=== PATIENT | female | born 1980 ===

== ENCOUNTER 2017-08-27 17:19 | Emergency (ER) | payer MEDICAID ==
[2017-08-27 17:29] VITALS: RESP 18; TEMP 98.3; O2SAT 100; BMI 29.7
--- NOTE | 2017-08-27 17:29 | ED PDOC ---
Arrival/HPI - General Time Seen by Provider: 08/27/17 17:29 Historian: Patient - History of Present Illness Narrative History of Present Illness (Text): 08/27/17 17:29 This 37 yo female with pmh PE on Eliquis 5mg BID, presents to this ED c/o right sided pleuritic CP x 2 week. Patient stated she feels mild SOB. Patient denies abdominal pain. nausea, vomiting, leg swelling, recent travel, recent procedure, trauma, tobacco use, BCP, dizziness or abnormal gait. Time/Duration: Other (2 weeks) Context: Home Past Medical History - Provider Review Nursing Documentation Reviewed: Yes - Infectious Disease Hx of Infectious Diseases: None - Cardiac Hx Cardiac Disorders: No Hx Pacemaker: No - Pulmonary Hx Respiratory Disorders: No Hx Asthma: No - Neurological Hx Neurological Disorder: No - HEENT Hx HEENT Disorder: No - Renal Hx Renal Disorder: No - Endocrine/Metabolic Hx Endocrine Disorders: No - Hematological/Oncological Hx Blood Disorders: No Hx Blood Transfusions: No Hx Blood Transfusion Reaction: No - Integumentary Hx Dermatological Disorder: No - Musculoskeletal/Rheumatological Hx Musculoskeletal Disorders: No - Gastrointestinal Hx Gastrointestinal Disorders: No - Genitourinary/Gynecological Hx Genitourinary Disorders: No - Psychiatric Hx Psychophysiologic Disorder: No Hx Emotional Abuse: No Hx Physical Abuse: No Hx Substance Use: No - Surgical History Hx Cholecystectomy: Yes Other/Comment: gastric sleeve - Anesthesia Hx Anesthesia Reactions: No Hx Malignant Hyperthermia: No - Suicidal Assessment Feels Threatened In Home Enviroment: No Family/Social History - Physician Review Nursing Documentation Reviewed: Yes Family/Social History: Other (noncontributory) Smoking Status: Never Smoked Hx Alcohol Use: No Hx Substance Use: No Allergies/Home Meds Allergies/Adverse Reactions: Allergies No Known Allergies Allergy (Verified 08/27/17 17:32) Home Medications: Home Meds Medication Instructions Recorded Confirmed Apixaban [Eliquis] 5 mg PO BID 08/27/17 08/27/17 Review of Systems - Review of Systems Constitutional: Normal. absent: Fatigue, Weight Change, Fevers, Night Sweats Eyes: Normal ENT: Normal Respiratory: Normal. absent: SOB, Cough Cardiovascular: Other (see hpi) Gastrointestinal: Normal Genitourinary Female: Normal Musculoskeletal: Normal Skin: Normal Neurological: Normal Endocrine: Normal Hemo/Lymphatic: Normal Psychiatric: Normal Physical Exam Vital Signs Temp Pulse Resp BP Pulse Ox 08/27/17 21:30 90 18 138/94 H 100 08/27/17 17:29 98.3 F 94 H 18 139/95 H 100 Medical Decision Making ED Course and Treatment: 08/27/17 21:21 Leaving Against Medical Advice (AMA): This patient is choosing to leave against medical advice. The EP has personally explained to the pt that choosing to do so may result in permanent bodily harm or . The EP discussed at great length that without further evaluation and monitoring there may be unforeseen circumstances and/or deterioration causing permanent bodily harm or as a result of their choice. The pt verbalized these risks back to the physician in laymans terms. The pt is alert, oriented, and shows the mental capacity to make clear decisions regarding the pts health care at this time. The pt continues to wish to leave against medical advice. In light of the pts decision to leave AMA, follow-up has been recommended and the pt is aware of the importance of following up as instructed. The pt has been advised that they should return to the ED immediately if they change their mind at any time, or if thier condition begins to change or worsen in any way. Re-evaluation Time: 21:21 Reassessment Condition: Re-examined, Unchanged - Lab Interpretations Lab Results: 08/27/17 18:25 08/27/17 18:25 Lab Results 08/27/17 18:50: PT 14.0 H, INR 1.28 H, APTT 29.3 08/27/17 18:25: Sodium 143, Chloride 109 H, Potassium 4.2, Carbon Dioxide 25, Anion Gap 13, BUN 16, Creatinine 0.8, Est GFR ( Amer) > 60, Est GFR (Non- Af Amer) > 60, Random Glucose 103, Calcium 9.5, Total Bilirubin 0.3, AST 25, ALT 31, Alkaline Phosphatase 50, Lactate Dehydrogenase 379, Total Creatine Kinase 58, Troponin I < 0.01, Total Protein 7.3, Albumin 4.4, Globulin 2.9, Albumin/Globulin Ratio 1.5 08/27/17 18:25: pO2 38, VBG pH 7.27 L, VBG pCO2 60.0, VBG HCO3 27.6, VBG Total CO2 29.4 H, VBG O2 Sat (Calc) 70.7 H, VBG Base Excess -0.6 L, VBG Potassium 4.0 , Sodium 142.0, Chloride 110.0 H, Glucose 102, Lactate 2.7 H, FiO2 21.0, Venous Blood Potassium 4.0 08/27/17 18:25: WBC 7.9 D, RBC 4.23, Hgb 9.0 L, Hct 30.0 L, MCV 70.9 L, MCH 21.3 L, MCHC 30.0 L, RDW 16.9 H, Plt Count 251, MPV 9.3, Gran % 68.5 H, Lymph % (Auto) 22.6, Mclennan % (Auto) 5.9, Eos % (Auto) 2.5, Baso % (Auto) 0.5, Gran # 5.38 , Lymph # 1.8, Mclennan # 0.5, Eos # 0.2, Baso # 0.04 08/27/17 17:45: Urine Opiates Screen Negative, Urine Methadone Screen Negative, Ur Barbiturates Screen Negative, Ur Phencyclidine Scrn Negative, Ur Amphetamines Screen Negative, U Benzodiazepines Scrn Negative, U Oth Cocaine Metabols Negative, U Cannabinoids Screen Positive H 08/27/17 17:45: Urine Color Yellow, Urine Appearance Clear, Urine pH 6.0, Ur Specific [place] 1.025, Urine Protein Trace H, Urine Glucose (UA) Negative, Urine Ketones Negative, Urine Blood Negative, Urine Nitrate Negative, Urine Bilirubin Negative, Urine Urobilinogen 0.2, Ur Leukocyte Esterase Negative, Urine RBC Negative, Urine WBC Negative, Ur Epithelial Cells 4 - 5, Urine HCG, Qual Negative I have reviewed the lab results: Yes Interpretation: Abnormal lab values (elevated lactate, anemia) - RAD Interpretation Narrative RAD Interpretations (Text): 08/27/17 21:21 [facility] Division of Radiology [address] [address] Tel. no. Patient Name: FRANCO ARELLANO Pt. Address: [address] [place] [address]. Rec #: [id number] [place] [address]: Otoniel WHITNEY,Cayetano Gonzalez Pt Order Location: ED : 1980 Female Age: 37 Order #: [id number] Reason for exam: RUQ pain CT Scan ABD PELVIS IV CONTRAST ONLY Exam Date: 08/27/17 This imaging exam was performed at [facility] ADDENDUM Addendum created by South Chamberlain MD on 08/27/2017 9:11:39 PM EDT THIS REPORT CONTAINS FINDINGS THAT MAY BE CRITICAL TO PATIENT CARE. The findings were verbally communicated via telephone conference with Cayetano Frederick PA-C at 9:10 PM EDT on 08/27/2017. The findings were acknowledged and understood. Initial report created on 08/27/2017 8:59:22 PM EDT EXAM: CT Abdomen and Pelvis With Intravenous Contrast EXAM DATE/TIME: 08/27/2017 5:49 PM CLINICAL HISTORY: The patient age is 37 years old and is female; Pain; Abdominal pain; Localized; Right; Additional info: [facility] pain Facility exam id and description: Ct abdpelciv abd pelvis iv contrast only TECHNIQUE: Axial computed tomography images of the abdomen and pelvis with intravenous contrast. All CT scans at this facility use one or more dose reduction techniques, viz.: automated exposure control; ma/kV adjustment per patient size (including targeted exams where dose is matched to indication; i.e. head); or iterative reconstruction technique. Coronal and sagittal reformatted images were created and reviewed. CONTRAST: 100 mL of omni administered intravenously. COMPARISON: No relevant prior studies available. FINDINGS: Lower thorax: See CTA chest report from the same day. ABDOMEN: Liver: The liver measures 18.5 cm in a craniocaudad dimension, consistent with hepatomegaly. No visualized hepatic mass. Gallbladder and bile ducts: Surgical clips are identified within the gallbladder fossa, compatible with cholecystectomy. Pancreas: Normal contour, without acute peripancreatic stranding. Spleen: No splenomegaly. Adrenals: No mass. Kidneys and ureters: There is a small hypodense probable cyst at the lower pole of the left kidney measuring 1.3 x 0.8 cm. There is no hydronephrosis bilaterally. Stomach and bowel: Postoperative changes are identified involving the stomach. Moderate fecal material is identified within the colon. Appendix: The appendix is distended measuring 9 mm in diameter. There is no acute periappendiceal stranding. PELVIS: Bladder: No mass. Reproductive: Within the right ovary, there is a peripherally enhancing probable cyst measuring 2.5 x 2.4 cm. ABDOMEN and PELVIS: Intraperitoneal space: No free air. Bones/joints: Hypertrophic degenerative changes are noted within the spine. Vasculature: No abdominal aortic aneurysm. Lymph nodes: Small retroperitoneal lymph nodes are visualized, without significant retroperitoneal lymphadenopathy. There is no significant intrapelvic lymphadenopathy. IMPRESSION: 1. Hepatomegaly. 2. The appendix is distended measuring 9 mm in diameter. There is no acute periappendiceal stranding. Early appendicitis cannot be excluded. Clinical correlation is recommended. 3. Within the right ovary, there is a peripherally enhancing probable cyst measuring 2.5 x 2.4 cm. This can be further evaluated with ultrasound. 4. Incidental/non-acute findings are described above. Addendum Dictated By: South Robins MD Addendum Dictated Date Time:08/27/17 Addendum Signed by:South Robins MD Addendum signed Date Time: 08/27/172110 Addendum Transcribed By: MICHAEL Addendum Transcribed Date Time: 08/27/17 CT Scan ANGIO CHEST PE PROTOCOL Exam Date: 08/27/17 This imaging exam was performed at [facility] EXAM: CT Angiography Chest With Intravenous Contrast EXAM DATE/TIME: 08/27/2017 5:43 PM CLINICAL HISTORY: The patient age is 37 years old and is female; Signs and symptoms; Shortness of breath; Additional info: SOB HX. Pe [facility] exam [facility] and description[facility] TECHNIQUE: Axial computed tomographic angiography images of the chest with intravenous contrast using pulmonary embolism protocol. All CT scans at this facility use one or more dose reduction techniques, viz.: automated exposure control; ma/kV adjustment per patient size (including targeted exams where dose is matched to indication; i.e. head); or iterative reconstruction technique. MIP reconstructed images were created and reviewed. Coronal and sagittal reformatted images were created and reviewed. CONTRAST: 100 mL of omni administered intravenously. COMPARISON: No relevant prior studies available. FINDINGS: Pulmonary arteries: There is no acute central pulmonary embolism. Evaluation of the peripheral pulmonary arteries for pulmonary embolism is suboptimal due to artifact. Aorta: No acute findings. No thoracic aortic aneurysm. Lungs: Patchy nonspecific groundglass density is identified within both lower lobes. There is a 2 mm nodule right upper lobe on series 2 image 48. No lung mass. Pleural space: No significant effusion. No pneumothorax. Heart: There is a small amount of fluid within the superior pericardial recess. Mediastinum: There is soft tissue within the anterior mediastinum, compatible with thymic tissue. Bones/joints: Hypertrophic degenerative changes are noted within the spine. Soft tissues: There is a metallic clip are piercing within the ventral chest. Nipple piercings are also visualized bilaterally. Lymph nodes: No significant mediastinal or hilar lymphadenopathy. Upper abdomen: For discussion of findings within the upper abdomen, refer to the CT abdomen/pelvis from the same day. IMPRESSION: 1. There is no acute central pulmonary embolism. Evaluation of the peripheral pulmonary arteries for pulmonary embolism is suboptimal due to artifact. If further evaluation is clinically indicated, a VQ scan is recommended. 2. Patchy nonspecific groundglass density is identified within both lower lobes. 3. There is a 2 mm nodule right upper lobe on series 2 image 48. Correlation with the prior study is recommended. 4. Incidental/non-acute findings are described above. Dictated By: South Chamberlain MD, MD Dictated Date/Time: 08/27/172057 Signed By: South Robins MD Date Signed: 2057 Transcribed By: MICHAEL Transcribe Date/Time : 08/27/172057 CAYLA/KAYY Radiology Orders: 08/27/17 17:43 ANGIO CHEST PE PROTOCOL [CT] Stat 08/27/17 17:44 CHEST PORTABLE [RAD] Stat 08/27/17 17:49 ABDOMEN & PELVIS [ABD & PELVIS IV CONTRAST ONLY] [CT] Stat - Medication Orders Current Medication Orders: Discontinued Medications Famotidine (Pepcid 20mg/50ml Premix) 20 mg in 50 mls @ 100 mls/hr IVPB STAT STA Stop: 08/27/17 18:22 Last Admin: 08/27/17 18:21 Dose: 100 mls/hr eMAR Start Stop Document 08/27/17 18:21 EQ (Rec: 08/27/17 18:21 EQ [id number]) Intravenous Solution Start Date 08/27/17 Start Time 18:21 Sodium Chloride (Sodium Chloride 0.9%) 1,000 mls @ 999 mls/hr IV .Q1H1M STA Stop: 10/27/17 20:11 Last Admin: 08/27/17 19:25 Dose: 999 mls/hr eMAR Start Stop Document 08/27/17 19:25 EQ (Rec: 08/27/17 19:25 EQ [facility] [id number]) Intravenous Solution Start Date 08/27/17 Start Time 19:25 Disposition/Present on Arrival - Present on Arrival Any Indicators Present on Arrival: No History of DVT/PE: No History of Uncontrolled Diabetes: No Urinary Catheter: No History Surgical Site Infection Following: None - Disposition Have Diagnosis and Disposition been Completed?: Yes Diagnosis: Other appendicitis Disposition: AGAINST MEDICAL ADVICE Disposition Time: 21:24 Patient Problems: Current Active Problems Problem Status Onset Appendicitis Acute Condition: UNKNOWN Additional Instructions: Please return to emergency at any time for medical care Referrals: Cynthia Lange DO [Primary Care Provider] - Follow up with primary Forms: [employer] (Thai)
[2017-08-27] MEDS ORDERED: Famotidine 20mg/50ml 20 MG/50 ML BAG IVPB STA (17:53)
[2017-08-27 18:00] LABS: URINE BILIRUBIN NEGATIVE (NEGATIVE); URINE BLOOD NEGATIVE (NEGATIVE); URINE GLUCOSE (UA) NEGATIVE (NEGATIVE); URINE KETONE NEGATIVE (NEGATIVE); URINE LEUKOCYTE ESTERASE NEGATIVE Leu/uL (NEGATIVE); URINE PROTEIN TRACE mg/dL (<30 mg/dL); URINE UROBILINOGEN 0.2 E.U./dL (<1 E.U./dL)
[2017-08-27 18:03] LABS: URINE APPEARANCE CLEAR (CLEAR); URINE COLOR YELLOW (YELLOW)
[2017-08-27 18:21] LABS: URINE RBC NEGATIVE /hpf (0-2); URINE WBC NEGATIVE /hpf (0-6)
[2017-08-27 18:31] LABS: BASO # 0.04 K/mm3 (0.0-2.0); BASO % 0.5 % (0.0-3.0); EOS # 0.2 (0.0-0.7); EOS % 2.5 % (1.5-5.0); GRAN # 5.38 (1.4-6.5); GRAN % 68.5 % (50.0-68.0); LYMPH # 1.8 (1.2-3.4); LYMPH % 22.6 % (22.0-35.0); MEAN CELL VOLUME 70.9 fl (80.0-105.0); MEAN CORPUSCULAR HEMOGLOBIN 21.3 pg (25.0-35.0); MEAN PLATELET VOLUME 9.3 fl (7.0-11.0); MONO # 0.5 (0.1-0.6); MONO % 5.9 % (1.0-6.0); RED CELL DISTRIBUTION WIDTH 16.9 % (11.5-14.5); WHITE BLOOD COUNT 7.9 10^3/ul (4.5-11.0)
[2017-08-27] MEDS ORDERED: Iohexol 350 MG/100 ML VIAL ONE (18:39)
[2017-08-27 18:45] LABS: VENOUS BLOOD GAS BASE EXCESS -0.6 mmol/L (0.0-2.0); VENOUS BLOOD PH 7.27 (7.32-7.43)
[2017-08-27 18:56] LABS: INR 1.28 (0.93-1.08); PARTIAL THROMBOPLASTIN TIME 29.3 Seconds (25.1-36.5)
[2017-08-27 18:57] LABS: ALB/GLOB RATIO 1.5 (1.1-1.8); ALKALINE PHOSPHATASE 50 U/L (38-126); ALT/SGPT 31 U/L (7-56); AST/SGOT 25 U/L (14-36); BILIRUBIN,TOTAL 0.3 mg/dL (0.2-1.3); BLOOD UREA NITROGEN 16 mg/dL (7-21); CALCIUM 9.5 mg/dL (8.4-10.5); CARBON DIOXIDE 25 mmol/L (21-33); CHLORIDE 109 mmol/L (98-107); GFR AFRICAN-AMERICAN > 60; GLUCOSE,RANDOM 103 mg/dL (70-110); POTASSIUM 4.2 mmol/L (3.6-5.0); SODIUM 143 mmol/L (132-148); TOTAL PROTEIN 7.3 g/dL (5.8-8.3)
[2017-08-27 19:09] LABS: TROPONIN I < 0.01 ng/mL
[2017-08-27] MEDS ORDERED: Sodium Chloride 0.9% 1,000 ML IV STA (19:11)
--- NOTE | 2017-08-27 20:58 | CT ---
EXAM: CT Angiography Chest With Intravenous Contrast EXAM DATE/TIME: 08/27/2017 5:43 PM CLINICAL HISTORY: The patient age is 37 years old and is female; Signs and symptoms; Shortness of breath; Additional info: SOB HX. Pe Facility exam id and description: Ct [facility] angio chest pe protocol TECHNIQUE: Axial computed tomographic angiography images of the chest with intravenous contrast using pulmonary embolism protocol. All CT scans at this facility use one or more dose reduction techniques, viz.: automated exposure control; ma/kV adjustment per patient size (including targeted exams where dose is matched to indication; i.e. head); or iterative reconstruction technique. MIP reconstructed images were created and reviewed. Coronal and sagittal reformatted images were created and reviewed. CONTRAST: 100 mL of omni administered intravenously. COMPARISON: No relevant prior studies available. FINDINGS: Pulmonary arteries: There is no acute central pulmonary embolism. Evaluation of the peripheral pulmonary arteries for pulmonary embolism is suboptimal due to artifact. Aorta: No acute findings. No thoracic aortic aneurysm. Lungs: Patchy nonspecific groundglass density is identified within both lower lobes. There is a 2 mm nodule right upper lobe on series 2 image 48. No lung mass. Pleural space: No significant effusion. No pneumothorax. Heart: There is a small amount of fluid within the superior pericardial recess. Mediastinum: There is soft tissue within the anterior mediastinum, compatible with thymic tissue. Bones/joints: Hypertrophic degenerative changes are noted within the spine. Soft tissues: There is a metallic clip are piercing within the ventral chest. Nipple piercings are also visualized bilaterally. Lymph nodes: No significant mediastinal or hilar lymphadenopathy. Upper abdomen: For discussion of findings within the upper abdomen, refer to the CT abdomen/pelvis from the same day. IMPRESSION: 1. There is no acute central pulmonary embolism. Evaluation of the peripheral pulmonary arteries for pulmonary embolism is suboptimal due to artifact. If further evaluation is clinically indicated, a VQ scan is recommended. 2. Patchy nonspecific groundglass density is identified within both lower lobes. 3. There is a 2 mm nodule right upper lobe on series 2 image 48. Correlation with the prior study is recommended. 4. Incidental/non-acute findings are described above.
--- NOTE | 2017-08-27 20:59 | CT ---
EXAM: CT Abdomen and Pelvis With Intravenous Contrast EXAM DATE/TIME: 08/27/2017 5:49 PM CLINICAL HISTORY: The patient age is 37 years old and is female; Pain; Abdominal pain; Localized; Right; Additional info: [facility] pain Facility exam id and description: Ct abdpelciv abd pelvis iv contrast only TECHNIQUE: Axial computed tomography images of the abdomen and pelvis with intravenous contrast. All CT scans at this facility use one or more dose reduction techniques, viz.: automated exposure control; ma/kV adjustment per patient size (including targeted exams where dose is matched to indication; i.e. head); or iterative reconstruction technique. Coronal and sagittal reformatted images were created and reviewed. CONTRAST: 100 mL of omni administered intravenously. COMPARISON: No relevant prior studies available. FINDINGS: Lower thorax: See CTA chest report from the same day. ABDOMEN: Liver: The liver measures 18.5 cm in a craniocaudad dimension, consistent with hepatomegaly. No visualized hepatic mass. Gallbladder and bile ducts: Surgical clips are identified within the gallbladder fossa, compatible with cholecystectomy. Pancreas: Normal contour, without acute peripancreatic stranding. Spleen: No splenomegaly. Adrenals: No mass. Kidneys and ureters: There is a small hypodense probable cyst at the lower pole of the left kidney measuring 1.3 x 0.8 cm. There is no hydronephrosis bilaterally. Stomach and bowel: Postoperative changes are identified involving the stomach. Moderate fecal material is identified within the colon. Appendix: The appendix is distended measuring 9 mm in diameter. There is no acute periappendiceal stranding. PELVIS: Bladder: No mass. Reproductive: Within the right ovary, there is a peripherally enhancing probable cyst measuring 2.5 x 2.4 cm. ABDOMEN and PELVIS: Intraperitoneal space: No free air. Bones/joints: Hypertrophic degenerative changes are noted within the spine. Vasculature: No abdominal aortic aneurysm. Lymph nodes: Small retroperitoneal lymph nodes are visualized, without significant retroperitoneal lymphadenopathy. There is no significant intrapelvic lymphadenopathy. IMPRESSION: 1. Hepatomegaly. 2. The appendix is distended measuring 9 mm in diameter. There is no acute periappendiceal stranding. Early appendicitis cannot be excluded. Clinical correlation is recommended. 3. Within the right ovary, there is a peripherally enhancing probable cyst measuring 2.5 x 2.4 cm. This can be further evaluated with ultrasound. 4. Incidental/non-acute findings are described above.
[2017-08-27 22:21] VITALS: BP 138/94; PULSE 90
--- NOTE | 2017-08-28 09:19 | CARD ---
APPROVED REPORT EKG Measurement Heart [id number] <Conclusion> Normal sinus rhythm Normal ECG
--- NOTE | 2017-08-28 09:52 | RAD ---
HISTORY: pleuritic CP COMPARISON: No prior. FINDINGS: LUNGS: No active pulmonary disease. PLEURA: No significant pleural effusion identified, no pneumothorax apparent. CARDIOVASCULAR: Cardiac size appears upper limits of normal with element of technical magnification likely in effect given AP technique. No pulmonary vascular derangement identified. OSSEOUS STRUCTURES: No significant abnormalities. VISUALIZED UPPER ABDOMEN: Normal. OTHER FINDINGS: Note is made of bilateral nipple rings. A 3rd metallic density is identified in the inferior midline chest in this patient. Clinically correlate. IMPRESSION: No acute cardiopulmonary is appreciated.
== END 2017-08-27 21:35 | disposition left against medical advice (07) ==
LOC: ED 17:19
DX: K36 Other appendicitis (principal)
CPT/HCPCS: 71010; 71275; 74177; 80053; 80324; 80345; 80346; 80349; 80353; 80358; 80361; 81001; 82550; 82803; 83615; 83992; 84484; 84703; 85025; 85610; 85730; 87086; 93005; 99284; J7040; Q9967

== ENCOUNTER 2017-08-27 22:54 | Observation (INO) | payer MEDICAID ==
--- NOTE | 2017-08-27 23:43 | ED PDOC ---
Arrival/HPI - General Historian: Patient <Cayetano Frederick - Last Filed: 08/28/17 01:06> <Apolinar Griffith - Last Filed: 08/28/17 01:36> - General Time Seen by Provider: 08/27/17 23:00 - History of Present Illness Narrative History of Present Illness (Text): 08/27/17 23:43 This 37 yo female presents to this ED for evaluation of abnormal CT scan. Patient was seen in this ED early today for right sided CP that radiates to her RUQ of her abdomen. Ct scan of chest demonstrates an enlarge appendix. Patient was not able to be admitted since she had personal things to do. Patient admits a mild RLQ abdominal pain at this time. Patient denies new complains. (Cayetano Frederick) Past Medical History - Provider Review Nursing Documentation Reviewed: Yes - Infectious Disease Hx of Infectious Diseases: None - Cardiac Hx Cardiac Disorders: No Hx Pacemaker: No - Pulmonary Hx Respiratory Disorders: No Hx Asthma: No - Neurological Hx Neurological Disorder: No - HEENT Hx HEENT Disorder: No - Renal Hx Renal Disorder: No - Endocrine/Metabolic Hx Endocrine Disorders: No - Hematological/Oncological Hx Blood Disorders: No Hx Blood Transfusions: No Hx Blood Transfusion Reaction: No - Integumentary Hx Dermatological Disorder: No - Musculoskeletal/Rheumatological Hx Musculoskeletal Disorders: No - Gastrointestinal Hx Gastrointestinal Disorders: No - Genitourinary/Gynecological Hx Genitourinary Disorders: No - Psychiatric Hx Psychophysiologic Disorder: No Hx Emotional Abuse: No Hx Physical Abuse: No Hx Substance Use: No - Surgical History Hx Cholecystectomy: Yes Other/Comment: gastric sleeve - Anesthesia Hx Anesthesia Reactions: No Hx Malignant Hyperthermia: No - Suicidal Assessment Feels Threatened In Home Enviroment: No <Cayetano Frederick - Last Filed: 08/28/17 01:06> Family/Social History - Physician Review Nursing Documentation Reviewed: Yes Family/Social History: Other Smoking Status: Never Smoked Hx Alcohol Use: No Hx Substance Use: No <Cayetano Frederick - Last Filed: 08/28/17 01:06> Allergies/Home Meds <Cayetano Frederick - Last Filed: 08/28/17 01:06> <Apolinar Griffith - Last Filed: 08/28/17 01:36> Allergies/Adverse Reactions: Allergies No Known Allergies Allergy (Verified 08/27/17 17:32) Home Medications: Home Meds Medication Instructions Recorded Confirmed Apixaban [Eliquis] 5 mg PO BID 08/27/17 08/27/17 Review of Systems - Review of Systems Constitutional: Normal. absent: Fatigue, Weight Change, Fevers Eyes: Normal ENT: Normal Respiratory: Normal Cardiovascular: Chest Pain Gastrointestinal: Abdominal Pain Genitourinary Female: Normal Musculoskeletal: Normal Skin: Normal Neurological: Normal Endocrine: Normal Hemo/Lymphatic: Normal Psychiatric: Normal <Cayetano Frederick P - Last Filed: 08/28/17 01:06> Physical Exam Temperature: Afebrile Blood Pressure: Normal Pulse: Regular Respiratory Rate: Normal Appearance: Positive for: Well-Appearing, Non-Toxic, Comfortable Pain Distress: None Mental Status: Positive for: Alert and Oriented X 3 - Systems Exam Head: Present: Atraumatic, Normocephalic Pupils: Present: PERRL Extroacular Muscles: Present: EOMI Conjunctiva: Present: Normal Mouth: Present: Moist Mucous Membranes Neck: Present: Normal Range of Motion Respiratory/Chest: Present: Clear to Auscultation, Good Air Exchange. No: Respiratory Distress, Accessory Muscle Use Cardiovascular: Present: Regular Rate and Rhythm, Normal S1, S2. No: Murmurs Abdomen: Present: Tenderness (mild RLQ tenderness), Normal Bowel Sounds. No: Distention, Peritoneal Signs Back: Present: Normal Inspection Upper Extremity: Present: Normal Inspection. No: Cyanosis, Edema Lower Extremity: Present: Normal Inspection. No: Edema Neurological: Present: GCS=15, CN II-XII Intact, Speech Normal Skin: Present: Warm, Dry, Normal Color. No: Rashes Psychiatric: Present: Alert, Oriented x 3, Normal Insight, Normal Concentration <OtonielAmandaim P - Last Filed: 08/28/17 01:06> Vital Signs Temp Pulse Resp BP Pulse Ox 08/27/17 22:55 98.8 F 88 18 149/77 99 Medical Decision Making Re-evaluation Time: 01:13 Reassessment Condition: Re-examined, Improved <Cayetano Frederick - Last Filed: 08/28/17 01:06> <Apolinar Griffith - Last Filed: 08/28/17 01:36> ED Course and Treatment: 08/28/17 01:11 Dr. Rubio was paged without answer. resident services supervisor was paged, and he came to examine patient. I spoke with Dr. Mejia regarding CT findings od early appendicitis, and wbc 7.9 , and he agrees with plan for admission. (Cayetano Frederick) - Medication Orders Current Medication Orders: Discontinued Medications Ciprofloxacin (Cipro 400mg/200ml Dsw) 400 mg in 200 mls @ 133.3 mls/hr IVPB STAT STA PRN Reason: Protocol Stop: 08/28/17 01:30 Metronidazole (Flagyl) 500 mg in 100 mls @ 100 mls/hr IVPB STAT STA PRN Reason: Protocol Stop: 08/28/17 00:58 Last Admin: 08/28/17 00:46 Dose: 100 mls/hr eMAR Start Stop Document 08/28/17 00:46 SC (Rec: 08/28/17 00:46 SC [id number]) Intravenous Solution Start Date 08/28/17 Start Time 00:46 End Date 08/28/17 End time 01:46 Total Infusion Time 60 - PA / BACKHAUL DRIVER / Resident Statement / has reviewed & agrees with the documentation as recorded. / has examined the patient and agrees with the treatment plan. <Apolinar Griffith - Last Filed: 08/28/17 01:36> Disposition/Present on Arrival - Present on Arrival Any Indicators Present on Arrival: No History of DVT/PE: No History of Uncontrolled Diabetes: No Urinary Catheter: No History Surgical Site Infection Following: None - Disposition Have Diagnosis and Disposition been Completed?: Yes Disposition Time: 01:13 Patient Plan: Admission <Cayetano Frederick - Last Filed: 08/28/17 01:06> <Apolinar Griffith - Last Filed: 08/28/17 01:36> - Disposition Diagnosis: Appendicitis Disposition: HOSPITALIZED Condition: GOOD
[2017-08-27] MEDS ORDERED: metroNIDAZOLE IV 500 mg/100 ml 500 MG/100 ML BAG IVPB STA (23:59)
[2017-08-28] MEDS ORDERED: Ciprofloxacin 400mg/200ml D5W 400 MG/200 ML BAG IVPB STA
--- NOTE | 2017-08-28 01:51 | CP.PCM.HP ---
<Monroe Rodrigues - Last Filed: 08/28/17 03:18> History of Present Illness - History of Present Illness History of Present Illness: This is a 37 year old female with a past medical history of pulmonary embolism ( Eliquis 5mg BID) who comes into the hospital complaining of right sided lower thorax pain that radiates to the right lower quadrant for the past two weeks. The patient denies any alleviating or modifying factors. The patient reports coming in after the pain becoming unbearable. The patient denies any chest pain , nausea, vomiting, lightheadedness, dizziness, sore throat, changes in vision, constipation, syncopal episodes, dysuria, or any other complaints. PMD: Dr. Lange Engine Repair Supervisor: Dr. Martinez Past medical history: HTN (resolved with weight loss), Pulmonary embolism Past surgical history: Gastric sleeve-2015, cholecystectomy (2009) Home Meds: Eliquis All: NKDA Family History: No family history of bleeding disorders, blood clots or lupus Social History: Used to smoke 1 pack per week for 12yrs but quit 5yr ago. Denies EtOH, drugs. ED Course:Patient found to have enlarged appendix on CT abdomen and pelvis -Given Ciprofloxacin and Flagyl -Surgery consulted Present on Admission - Present on Admission Any Indicators Present on Admission: No Review of Systems - Constitutional Constitutional: absent: Chills, Headache, Night Sweats, Weight Gain, Weight Loss , Weakness - EENT Eyes: absent: Blurred Vision, Diplopia, Discharge, Itchy Eyes, Sees Flashes, Loss of Vision Ears: absent: Ear Discharge, Disequilibrium, Dizziness Nose/Mouth/Throat: absent: Epistaxis, Nasal Trauma, Dry Mouth, Dysphagia - Breasts Breasts: absent: Mass - Cardiovascular Cardiovascular: absent: Chest Pain, Claudication, Leg Edema, Orthopnea, Palpitations, Pedal Edema - Respiratory Respiratory: absent: Dyspnea, Wheezing, Snoring, Pain on Inspiration - Gastrointestinal Gastrointestinal: Abdominal Pain. absent: Cramping, Diarrhea, Dysphagia, Heartburn, Melena, Nausea, Vomiting - Musculoskeletal Musculoskeletal: absent: Arthralgias, Muscle Weakness, Myalgias, Neck Pain, Stiffness, Tingling - Integumentary Integumentary: absent: Alopecia, Bleeding Lesions, Lesions, Pruritus, Sores, Striae, Swelling - Neurological Neurological: absent: Abnormal Gait, Abnormal Hearing, Dizziness, Headaches, Lack of Coordination, Syncope, Tingling, Tremor, Vertigo, Weakness - Psychiatric Psychiatric: absent: Anxiety, Depression, Panic Attacks, Paranoia - Endocrine Endocrine: absent: Polydipsia, Polyphagia, Polyuria - Hematologic/Lymphatic Hematologic: absent: Easy Bleeding, Easy Bruising, Lymphadenopathy Past Patient History - Infectious Disease Hx of Infectious Diseases: None - Past Social History Smoking Status: Never Smoked - CARDIAC Hx Cardiac Disorders: No Hx Pacemaker: No - PULMONARY Hx Respiratory Disorders: No Hx Asthma: No - NEUROLOGICAL Hx Neurological Disorder: No - HEENT Hx HEENT Problems: No - RENAL Hx Chronic Kidney Disease: No - ENDOCRINE/METABOLIC Hx Endocrine Disorders: No - HEMATOLOGICAL/ONCOLOGICAL Hx Blood Disorders: No Hx Blood Transfusions: No Hx Blood Transfusion Reaction: No - INTEGUMENTARY Hx Dermatological Problems: No - MUSCULOSKELETAL/RHEUMATOLOGICAL Hx Musculoskeletal Disorders: No - GASTROINTESTINAL Hx Gastrointestinal Disorders: No - GENITOURINARY/GYNECOLOGICAL Hx Genitourinary Disorders: No - PSYCHIATRIC Hx Psychophysiologic Disorder: No Hx Emotional Abuse: No Hx Physical Abuse: No Hx Substance Use: No - SURGICAL HISTORY Hx Cholecystectomy: Yes Other/Comment: gastric sleeve - ANESTHESIA Hx Anesthesia Reactions: No Hx Malignant Hyperthermia: No Meds Allergies/Adverse Reactions: Allergies Allergy/AdvReac Type Severity Reaction Status Date / Time No Known Allergies Allergy Verified 08/27/17 17:32 Physical Exam - Head Exam Head Exam: ATRAUMATIC, NORMAL INSPECTION, NORMOCEPHALIC - Eye Exam Eye Exam: EOMI, Normal appearance, PERRL. absent: Conjunctival injection Pupil Exam: NORMAL ACCOMODATION, PERRL. absent: Irregular, Unequal - ENT Exam ENT Exam: Mucous Membranes Moist, Normal Exam. absent: Normal Oropharynx, TM's Normal Bilaterally - Neck Exam Neck exam: Positive for: Normal Inspection. Negative for: Lymphadenopathy, Thyromegaly - Respiratory Exam Respiratory Exam: Clear to Auscultation Bilateral, NORMAL BREATHING PATTERN. absent: Accessory Muscle Use, Chest Wall Tenderness, Prolonged Expiratory Phase , Respiratory Distress - Cardiovascular Exam Cardiovascular Exam: REGULAR RHYTHM, RRR, +S1, +S2. absent: Gallop, Rubs - GI/Abdominal Exam GI & Abdominal Exam: Normal Bowel Sounds, Tenderness. absent: Distended, Firm, Hypoactive Bowel Sounds, Organomegaly - Extremities Exam Extremities exam: Positive for: normal inspection. Negative for: full ROM, joint swelling, pedal edema, tenderness - Back Exam Back exam: NORMAL INSPECTION. absent: CVA tenderness (L), CVA tenderness (R), paraspinal tenderness - Neurological Exam Neurological exam: Alert, CN II-XII Intact, Oriented x3, Reflexes Normal - Psychiatric Exam Psychiatric exam: Normal Affect, Normal Mood - Skin Skin Exam: Dry, Intact, Normal Color Results - Vital Signs Recent Vital Signs: Last Vital Signs Temp 98.8 F 08/27/17 22:55 Pulse 88 08/27/17 22:55 Resp 18 08/27/17 22:55 BP 149/77 08/27/17 22:55 Pulse Ox 99 08/27/17 22:55 Assessment & Plan - Assessment and Plan (Free Text) Assessment: This is a 37 year old female with a past medical history of pulmonary embolism( currently on Eliquis) who presents with right lower quadrant. Plan: 1. Right lower quadrant pain -Ct abdomen and pelvis showed an enlarged appendix. -Surgery consulted. Will f/u with recs. -NPO. Pain management. 2.H/O Pulmonary embolism -Currently on Eliquis for one year. -Continue home meds. Will closely monitor. 3.H/O hypertension -Weight loss has resolved symptoms. -Normotensive upon admission -Will continue to monitor. GI ppx -Protonix DVT ppx -Eliquis <aLshawn Mejia - Last Filed: 08/30/17 20:43> Results - Vital Signs Recent Vital Signs: Last Vital Signs Temp 98.4 F 08/29/17 16:00 Pulse 75 08/29/17 16:00 Resp 18 08/29/17 16:00 BP 153/91 H 08/29/17 16:00 Pulse Ox 98 08/29/17 16:00 - Labs Result Diagrams: 08/29/17 06:30 08/29/17 06:30 Labs: Laboratory Results - last 24 hr 08/28/17 08/28/17 06:30 11:21 HIV 1&2 Ag/Ab, 4th Gen Nonreactive Crossmatch See Detail Attending/Attestation - Attestation I have personally seen and examined this patient.: Yes I have fully participated in the care of the patient.: Yes I have reviewed all pertinent clinical information: Yes
--- NOTE | 2017-08-28 02:04 | CP.PCM.CON ---
Addendum entered and electronically signed by Miguel Stout DO 08/28/17 13:56: After further discussion with Dr. Rubio, will repeat IV&PO contrast to r/o appendicitis. Will hold Eliquis for now Discussed plan of care with medical team, recommend patient be placed on heparin drip for now. If CT scan positive for appendicitis, will hold heparin 6 hours prior to OR. OK to start liquid diet NPO after MN if CT scan result is +appendicitis Miguel Stout PGY2 Addendum entered and electronically signed by Sorin Bennett DO 08/28/17 09:01 : OR cancelled as per Dr. Rubio. Will treat conservatively. Original Note: <Sorin Bennett - Last Filed: 08/28/17 08:13> History of Present Illness - History of Present Illness History of Present Illness: General Surgery Consult Note for Dr. Rubio Reason for consult: Abdominal pain suspected appendicitis 37 F with PMH of bariatric surgery and pulmonary embolism on anticoagulation [place] [facility] [place] with complaint of right sided abdominal pain. Patient states she has had pain for the past two weeks. She said about 2 days ago she had an episode of nausea/vomiting. At that time, she admitted to some diarrhea. She reports that she has had a similar pain when she had the pulmonary embolism last year. Patient was in the ED earlier when CT scan was completed but signed out AMA because she had things to do. She came back afterwards. She rates pain as moderate in severity. She describes pain as constant and sharp that is located in right chest/flank radiating down the right side of abdomen. Patient currently denies any symptoms beside pain. Patient denies any alleviating or modifying factors. Denies any fever/chills, chest pain, SOB, lightheadedness, dizziness, constipation, dysuria, or any other complaints. PMD: Dr. Lange Past medical history: HTN, Pulmonary embolism Medications: Eliquis Allergy: NKDA Past surgical history: Gastric sleeve (2016), cholecystectomy (2010) Family History: CAD Social History: former smoker - at least 1 pack per week for 12 years, quit 6 years ago, Denies EtOH and illicit drug use Review of Systems - Review of Systems All systems: reviewed and no additional remarkable complaints except (abdominal pain) Past Patient History - Infectious Disease Hx of Infectious Diseases: None - Past Social History Smoking Status: Never Smoked - CARDIAC Hx Cardiac Disorders: No Hx Pacemaker: No - PULMONARY Hx Respiratory Disorders: No Hx Asthma: No - NEUROLOGICAL Hx Neurological Disorder: No - HEENT Hx HEENT Problems: No - RENAL Hx Chronic Kidney Disease: No - ENDOCRINE/METABOLIC Hx Endocrine Disorders: No - HEMATOLOGICAL/ONCOLOGICAL Hx Blood Disorders: No Hx Blood Transfusions: No Hx Blood Transfusion Reaction: No - INTEGUMENTARY Hx Dermatological Problems: No - MUSCULOSKELETAL/RHEUMATOLOGICAL Hx Musculoskeletal Disorders: No - GASTROINTESTINAL Hx Gastrointestinal Disorders: No - GENITOURINARY/GYNECOLOGICAL Hx Genitourinary Disorders: No - PSYCHIATRIC Hx Psychophysiologic Disorder: No Hx Emotional Abuse: No Hx Physical Abuse: No Hx Substance Use: No - SURGICAL HISTORY Hx Cholecystectomy: Yes Other/Comment: gastric sleeve - ANESTHESIA Hx Anesthesia Reactions: No Hx Malignant Hyperthermia: No Meds Home Medications: Home Medication List Medication Instructions Recorded Confirmed Type Ciprofloxacin [Cipro] 500 mg PO BID 7 Days tab 08/29/17 Rx metroNIDAZOLE IV 500 mg/100 ml 500 mg IV TID 7 Days bag 08/29/17 Rx [Flagyl IV] Allergies/Adverse Reactions: Allergies Allergy/AdvReac Type Severity Reaction Status Date / Time No Known Allergies Allergy Verified 08/27/17 17:32 - Medications Medications: Current Medications Ciprofloxacin (Cipro 400mg/200ml Dsw) 400 mg in 200 mls @ 133.3 mls/hr IVPB Q12 ANNIE PRN Reason: Protocol Stop: 08/28/17 11:31 Metronidazole (Flagyl) 500 mg in 100 mls @ 100 mls/hr IVPB Q8 ANNIE PRN Reason: Protocol Pantoprazole Sodium (Protonix Inj) 40 mg IVP DAILY [facility] Physical Exam - Constitutional Appears: No Acute Distress - Head Exam Head Exam: ATRAUMATIC, NORMOCEPHALIC - Eye Exam Eye Exam: EOMI, Normal appearance Pupil Exam: PERRL - ENT Exam ENT Exam: Mucous Membranes Moist - Respiratory Exam Respiratory Exam: NORMAL BREATHING PATTERN - Cardiovascular Exam Cardiovascular Exam: REGULAR RHYTHM - GI/Abdominal Exam GI & Abdominal Exam: Normal Bowel Sounds, Soft, Tenderness (RUQ/RLQ). absent: Distended, Firm, Guarding, Rebound, Rigid Additional comments: (+) McBurney's point (-) psoas sign (-) obturator sign - Extremities Exam Extremities exam: Positive for: normal capillary refill, pedal pulses present. Negative for: calf tenderness - Back Exam Back exam: absent: CVA tenderness (L), CVA tenderness (R) - Neurological Exam Neurological exam: Alert, CN II-XII Intact, Oriented x3 - Psychiatric Exam Psychiatric exam: Normal Affect, Normal Mood - Skin Skin Exam: Dry, Intact, Normal Color, Warm Results - Vital Signs Recent Vital Signs: Last Vital Signs Temp 98.2 F 08/28/17 01:56 Pulse 80 08/28/17 01:56 Resp 16 08/28/17 01:56 BP 143/76 08/28/17 01:56 Pulse Ox 99 08/28/17 01:56 Assessment & Plan - Assessment and Plan (Free Text) Plan: 37 F with suspected appendicitis -IV antibiotics -IV fluids -Analgesics/Anti-emetics PRN -CXR, EKG, pre-op labs -OR at 11 AM for laparoscopic appendectomy -Discussed with Dr. Ramiro Bennett PGY1 <Brandan Rubio B - Last Filed: 08/29/17 18:21> Results - Vital Signs Recent Vital Signs: Last Vital Signs Temp 98.4 F 08/29/17 16:00 Pulse 75 08/29/17 16:00 Resp 18 08/29/17 16:00 BP 153/91 H 08/29/17 16:00 Pulse Ox 98 08/29/17 16:00 - Labs Result Diagrams: 08/29/17 06:30 08/29/17 06:30 Labs: Laboratory Results - last 24 hr 08/28/17 08/29/17 08/29/17 19:00 06:30 06:30 WBC 6.0 RBC 4.03 Hgb 8.5 L Hct 27.8 L MCV 69.0 L MCH 21.1 L MCHC 30.6 L RDW 16.9 H Plt Count 229 MPV 10.1 Gran % 68.0 Lymph % (Auto) 19.[address] [place] % (Auto) 8.5 H Eos % (Auto) 3.0 Baso % (Auto) 0.7 Gran # 4.06 Lymph # 1.2 [place] # 0.5 Eos # 0.2 Baso # 0.04 PT INR APTT 52.0 H Sodium 140 Potassium 3.7 Chloride 109 H Carbon Dioxide 21 Anion Gap 14 BUN 8 Creatinine 0.7 Est GFR ( Amer) > 60 Est GFR (Non-Af Amer) > 60 Random Glucose 82 Calcium 8.6 Phosphorus 3.0 Magnesium 1.8 Total Bilirubin 0.4 AST 26 ALT 32 Alkaline Phosphatase 44 Total Protein 6.5 Albumin 3.8 Globulin 2.7 Albumin/Globulin Ratio 1.4 08/29/17 06:30 WBC RBC Hgb Hct MCV MCH MCHC RDW Plt Count MPV Gran % Lymph % (Auto) [place] % (Auto) Eos % (Auto) Baso % (Auto) Gran # Lymph # [place] # Eos # Baso # PT 13.1 H INR 1.19 H APTT 27.2 Sodium Potassium Chloride Carbon Dioxide Anion Gap BUN Creatinine Est GFR ( Amer) Est GFR (Non-Af Amer) Random Glucose Calcium Phosphorus Magnesium Total Bilirubin AST ALT Alkaline Phosphatase Total Protein Albumin Globulin Albumin/Globulin Ratio Attending/Attestation - Attestation I have personally seen and examined this patient.: Yes I have fully participated in the care of the patient.: Yes I have reviewed all pertinent clinical information: Yes Notes (Text): Pt was seen and examined at bedside Agree with above note and assessment Pt with PE with Chest pain with upper abdominal warren Pt is tender all over abdomen CT scan of A/P and labs reviewed Ass: Clinically less likely appendicitis Repeat CT scan of A/P with Po and IV contrast If repeat CT scan is positive, Pt would need surgical intervention. C/w IV antibiotics c.w current mx for PE and chest pain Heparin drip Plan d.w pt in detail Risk and benefit explaine in detail.
[2017-08-28] MEDS ORDERED: HYDROmorphone 0.5 mg/0.5 ml ISec IVP PRN (02:20)
[2017-08-28] MEDS: Sodium Chloride 0.9% 1,000 ML IV SCH ×2 (03:11→14:05)
[2017-08-28] MEDS: metroNIDAZOLE IV 500 mg/100 ml 500 MG/100 ML BAG IVPB SCH ×3 (06:49→21:41)
[2017-08-28 07:42] LABS: BASO # 0.03 K/mm3 (0.0-2.0); BASO % 0.5 % (0.0-3.0); EOS # 0.2 (0.0-0.7); EOS % 3.5 % (1.5-5.0); GRAN # 3.49 (1.4-6.5); GRAN % 54.7 % (50.0-68.0); HEMATOCRIT 27.1 % (36.0-48.0); LYMPH # 2.1 (1.2-3.4); LYMPH % 32.5 % (22.0-35.0); MEAN CELL VOLUME 69.3 fl (80.0-105.0); MEAN CORPUSCULAR HGB CONC 30.3 g/dl (31.0-37.0); MEAN PLATELET VOLUME 10.2 fl (7.0-11.0); MONO # 0.6 (0.1-0.6); MONO % 8.8 % (1.0-6.0); WHITE BLOOD COUNT 6.4 10^3/ul (4.5-11.0)
[2017-08-28 07:45] LABS: INR 1.21 (0.93-1.08)
[2017-08-28 07:51] LABS: ALB/GLOB RATIO 1.5 (1.1-1.8); ALKALINE PHOSPHATASE 42 U/L (38-126); ALT/SGPT 33 U/L (7-56); AST/SGOT 22 U/L (14-36); BILIRUBIN,TOTAL 0.3 mg/dL (0.2-1.3); BLOOD UREA NITROGEN 14 mg/dL (7-21); CALCIUM 8.8 mg/dL (8.4-10.5); CARBON DIOXIDE 24 mmol/L (21-33); CHLORIDE 109 mmol/L (98-107); GFR AFRICAN-AMERICAN > 60; GLUCOSE,RANDOM 89 mg/dL (70-110); POTASSIUM 3.6 mmol/L (3.6-5.0); SODIUM 141 mmol/L (132-148); TOTAL PROTEIN 6.5 g/dL (5.8-8.3)
[2017-08-28 08:01] VITALS: BMI 30.1
[2017-08-28] MEDS ORDERED: Ciprofloxacin 400mg/200ml D5W 400 MG/200 ML BAG IVPB SCH (14:00)
[2017-08-28] MEDS: cefTRIAXone 1 gm 1 GM/100 ML BAG IVPB SCH (14:04)
--- NOTE | 2017-08-28 15:08 | CP.PCM.PCO ---
<Malcolm Truong - Last Filed: 08/28/17 15:05> Addendum Addendum: 08/28/17 15:07 Examined by myself and Dr. Atkins, and pt is resting comfortably and complaining of mild RUQ pain with palpation and denies n/v/d, cp, sob, fevers/chills. 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 Martinez ( [employer]) that she could stop after 6months if she desired, however, she felt uncomfortable and wanted to stay on anticoagulation. Discussed with global president for Dr. Rubio, who requested that pt be placed on heparin drip rather than Eliquis, and that it be stopped 6 hours prior to OR. Pt will receive CT abdomen w/ IV and PO contrast and then it will be decided if she will go to OR for appendectomy or not. <Farooq Atkins - Last Filed: 08/28/17 16:41> Attending/Attestation - Attestation I have personally seen and examined this patient.: Yes I have fully participated in the care of the patient.: Yes I have reviewed all pertinent clinical information: Yes
[2017-08-28] MEDS ORDERED: Heparin25000 units/250ml 1/2NS 25,000 UNITS/250 ML BAG IV SCH (15:15)
[2017-08-28] MEDS ORDERED: Heparin 25,000units in D5W 25,000 UNITS/250 ML BAG IV SCH (16:08)
[2017-08-28] MEDS ORDERED: Iohexol 240 (50 ml) ONE (18:38)
[2017-08-28] MEDS ORDERED: Iohexol 350 MG/100 ML VIAL ONE (20:43)
--- NOTE | 2017-08-28 22:14 | CT ---
EXAM: CT Abdomen and Pelvis With Intravenous Contrast CLINICAL HISTORY: 37 years old, female; Pain; Abdominal pain; Other: R/O appendicitis TECHNIQUE: Axial computed tomography images of the abdomen and pelvis with intravenous contrast. All CT scans at this facility use one or more dose reduction techniques, viz.: automated exposure control; ma/kV adjustment per patient size (including targeted exams where dose is matched to indication; i.e. head); or iterative reconstruction technique. Coronal and sagittal reformatted images were created and reviewed. CONTRAST: 100 mL of [id number] administered intravenously. COMPARISON: CT - ABD PELVIS IV CONTRAST ONLY 2017-08-27 19:12 FINDINGS: Lower thorax: Borderline cardiomegaly. ABDOMEN: Liver: Unremarkable. No mass. Gallbladder and bile ducts: Cholecystectomy. No ductal dilation. Pancreas: No ductal dilation. No mass. Spleen: No splenomegaly. Adrenals: No mass. Kidneys and ureters: No mass. No hydronephrosis. Stomach and bowel: Postsurgical changes of stomach. Mild mural thickening vs underdistention gastric antrum. Segmental areas of mild mural thickening vs underdistention of large bowel. No associated inflammatory stranding. No obstruction. Appendix: Enlarged distal appendix, measuring up to 0.9 cm in diameter. Contrast within proximal and mid appendix. No definite surrounding inflammatory stranding. PELVIS: Bladder: Unremarkable. Reproductive: Small ovarian follicles. 2.1 x 2.3 x 2.9 cm peripherally enhancing hypodensity with crenulated margins within RIGHT ovary. ABDOMEN and PELVIS: Intraperitoneal space: Trace free fluid within pelvis. No free air. Bones/joints: No acute fracture. Soft tissues: Unremarkable. Vasculature: Unremarkable. No aneurysm. Lymph nodes: No pathologically enlarged lymph nodes. IMPRESSION: 1. Enlarged distal appendix without definite inflammation. Clinical correlation is needed. 2. Involuting or ruptured RIGHT ovarian follicle/cyst. 3. Mild gastric wall thickening vs underdistention. Clinical correlation is needed. 4. Mild colitis vs underdistention. Favor underdistention. Clinical correlation is needed. 5. Incidental/non-acute findings are described above.
--- NOTE | 2017-08-29 02:11 | CON ---
DATE: 08/28/2017 The patient was seen early this morning in 556, bed 3. CHIEF COMPLAINT: Abdominal pain x1 day. HISTORY OF PRESENT ILLNESS: This is a 37-year-old obese female with a BMI of 30.1 with a history of pulmonary emboli, history of hypertension, and the patient was admitted with a diagnosis of appendicitis. Infectious disease is called for antibiotic decision. The patient states she is feeling better now, and has less abdominal pain, although present. She did have nausea, no vomiting and low-grade fevers. No chills, no dysuria or frequency. PAST MEDICAL HISTORY: Significant for pulmonary emboli, hypertension and obesity with a BMI of 30.1. PAST SURGICAL HISTORY: Significant for bariatric surgery and cholecystectomy in 2009. ALLERGIES: The patient has no known allergies. MEDICATIONS AT HOME: Reveal to be Eliquis and apixaban PHYSICAL EXAMINATION VITAL SIGNS: The patient is in bed with a temperature of 98, blood pressure is 150/80, respiratory rate of 20, heart rate of 20. HEENT: Unremarkable. NECK: Supple. LUNGS: Decreased breath sounds. HEART: Normal S1 and S2. ABDOMEN: Soft, nontender. No rebound or guarding. LABORATORY EXAMINATION: Reveals the patient to have white count of 6.4, hemoglobin of 8, platelets of 238. Chemistry reveals BUN of 14 and creatinine of 0.8. Microbiology is pending. The patient had a CAT scan done on the on her prior visit to the emergency room which is consistent with appendicitis. ASSESSMENT AND PLAN: This is a 37-year-old obese female with a body mass index of 30.1, pulmonary emboli, hypertension, history of cholecystectomy in 2009, history of bariatric surgery, who is now admitted with right lower quadrant pain and nausea, found to have appendicitis on CAT scan. From infectious disease point of view, I will recommend ceftriaxone and Flagyl. We will discontinue the Cipro. The cultures are pending. We will order an HIV test because of the patient's age, and surgical and GI evaluation. We will follow closely with you. Freddie Schroeder MD
[2017-08-29] MEDS: metroNIDAZOLE IV 500 mg/100 ml 500 MG/100 ML BAG IVPB SCH (05:25)
[2017-08-29 07:45] LABS: BASO # 0.04 K/mm3 (0.0-2.0); BASO % 0.7 % (0.0-3.0); EOS # 0.2 (0.0-0.7); GRAN # 4.06 (1.4-6.5); HEMATOCRIT 27.8 % (36.0-48.0); LYMPH # 1.2 (1.2-3.4); LYMPH % 19.8 % (22.0-35.0); MEAN CORPUSCULAR HEMOGLOBIN 21.1 pg (25.0-35.0); MEAN CORPUSCULAR HGB CONC 30.6 g/dl (31.0-37.0); MEAN PLATELET VOLUME 10.1 fl (7.0-11.0); MONO # 0.5 (0.1-0.6); MONO % 8.5 % (1.0-6.0); RED CELL DISTRIBUTION WIDTH 16.9 % (11.5-14.5)
[2017-08-29 07:57] LABS: INR 1.19 (0.93-1.08); PARTIAL THROMBOPLASTIN TIME 27.2 Seconds (25.1-36.5)
[2017-08-29 08:19] LABS: ALB/GLOB RATIO 1.4 (1.1-1.8); ALKALINE PHOSPHATASE 44 U/L (38-126); ALT/SGPT 32 U/L (7-56); AST/SGOT 26 U/L (14-36); BILIRUBIN,TOTAL 0.4 mg/dL (0.2-1.3); BLOOD UREA NITROGEN 8 mg/dL (7-21); CALCIUM 8.6 mg/dL (8.4-10.5); CARBON DIOXIDE 21 mmol/L (21-33); CHLORIDE 109 mmol/L (98-107); GFR AFRICAN-AMERICAN > 60; GLUCOSE,RANDOM 82 mg/dL (70-110); MAGNESIUM 1.8 mg/dL (1.7-2.2); POTASSIUM 3.7 mmol/L (3.6-5.0); SODIUM 140 mmol/L (132-148); TOTAL PROTEIN 6.5 g/dL (5.8-8.3)
--- NOTE | 2017-08-29 08:53 | CP.PCM.PN ---
<Miguel Stout - Last Filed: 08/29/17 08:50> Subjective - Date & Time of Evaluation Date of Evaluation: 08/29/17 Time of Evaluation: 06:45 - Subjective Subjective: Patient seen and examined this morning. Reports pleuritic chest pain has resolved. States she had two bouts of emesis s/p CT Scan. Currently denies any abdominal pain, nausea/vomiting. Objective - Vital Signs/Intake and Output Vital Signs (last 24 hours): Temp Pulse Resp BP Pulse Ox 98.5 F 78 20 133/90 100 08/29/17 07:30 08/29/17 07:30 08/29/17 07:30 08/29/17 07:30 08/29/17 07:30 Intake and Output: 08/29/17 08/29/17 06:59 18:59 Intake Total 700 Balance 700 - Medications Medications: Current Medications Acetaminophen (Tylenol 325mg Tab) 650 mg PO Q6H PRN PRN Reason: Headache Last Admin: 08/28/17 03:10 Dose: 650 mg Hydromorphone HCl (Dilaudid) 0.5 mg IVP Q4H PRN PRN Reason: Pain, moderate (4-7) Metronidazole (Flagyl) 500 mg in 100 mls @ 100 mls/hr IVPB Q8 ANNIE PRN Reason: Protocol Last Admin: 08/29/17 05:25 Dose: 100 mls/hr Sodium Chloride (Sodium Chloride 0.9%) 1,000 mls @ 100 mls/hr IV .Q10H ANNIE Last Admin: 08/28/17 14:05 Dose: 100 mls/hr Ceftriaxone Sodium (Rocephin 1 Gram Ivpb) 1 gm in 100 mls @ 100 mls/hr IVPB DAILY ANNIE PRN Reason: Protocol Stop: 09/06/17 11:16 Last Admin: 08/28/17 14:04 Dose: 100 mls/hr Heparin Sodium/Dextrose (Heparin 25,000 Units/250ml In D5w) 25,000 units in 250 mls @ 14.778 mls/hr IV .[id number] ANNIE; 18 UNITS/KG/HR PRN Reason: Protocol Last Admin: 08/28/17 17:08 Dose: 18 units/kg/hr, 14.778 mls/hr Ondansetron HCl (Zofran Inj) 4 mg IVP Q6H PRN PRN Reason: Nausea/Vomiting Pantoprazole Sodium (Protonix Inj) 40 mg IVP DAILY ANNIE Last Admin: 08/28/17 09:59 Dose: 40 mg - Labs Labs: 08/29/17 06:30 08/29/17 06:30 PT 13.1 SECONDS (9.4-12.5) H 08/29/17 06:30 INR 1.19 (0.93-1.08) H 08/29/17 06:30 APTT 27.2 Seconds (25.1-36.5) 08/29/17 06:30 - Constitutional Appears: No Acute Distress - Head Exam Head Exam: NORMOCEPHALIC - Eye Exam Eye Exam: Normal appearance - Respiratory Exam Respiratory Exam: NORMAL BREATHING PATTERN - Cardiovascular Exam Cardiovascular Exam: +S1, +S2 - GI/Abdominal Exam GI & Abdominal Exam: Soft. absent: Distended, Firm, Guarding, Rigid, Tenderness - Neurological Exam Neurological Exam: Alert, Awake, Oriented x3 - Psychiatric Exam Psychiatric exam: Normal Mood - Skin Skin Exam: Dry, Intact, Warm Assessment and Plan - Assessment and Plan (Free Text) Assessment: 37F w/ abdominal pain, resolved -Based on CT image findings and clinical presentation patient does not need surgical intervention at this present time -Restart Eliquis -Will advance diet -Medical management as per primary team -D/w Dr. Ramiro Stout PGY2 <Brandan Rubio - Last Filed: 08/29/17 18:16> Objective - Vital Signs/Intake and Output Vital Signs (last 24 hours): Temp Pulse Resp BP Pulse Ox 98.4 F 75 18 153/91 H 98 08/29/17 16:00 08/29/17 16:00 08/29/17 16:00 08/29/17 16:00 08/29/17 16:00 Intake and Output: 08/29/17 08/29/17 06:59 18:59 Intake Total 700 600 Balance 700 600 - Labs Labs: 08/29/17 06:30 08/29/17 06:30 PT 13.1 SECONDS (9.4-12.5) H 08/29/17 06:30 INR 1.19 (0.93-1.08) H 08/29/17 06:30 APTT 27.2 Seconds (25.1-36.5) 08/29/17 06:30 Attending/Attestation - Attestation I have personally seen and examined this patient.: Yes I have fully participated in the care of the patient.: Yes I have reviewed all pertinent clinical information, including history, physical exam and plan: Yes Notes (Text): 08/29/17 18:14 Pt was seen and examined at bedside Agree with above note and assessment Pt is improved clinically. No c/o abdominal pain. NO abdominal tenderness Repeat CT scan is suggestive of Normal appendix Pt can be DC home with Po antibiotics f/u as out pt Plan d.w pt in detail Risk and benefit explaine in detail.
[2017-08-29] MEDS: cefTRIAXone 1 gm 1 GM/100 ML BAG IVPB SCH (09:11)
--- NOTE | 2017-08-29 16:03 | PN ---
DATE: 08/29/2017 SUBJECTIVE: The patient is in bed, no acute distress, nontoxic. She states her abdominal pain is improved. PHYSICAL EXAMINATION: VITAL SIGNS: Temperature is 98, blood pressure is 120/60, respiratory rate of 16. HEENT: Unremarkable. NECK: Supple. LUNGS: Have decreased breath sounds. HEART: Normal S1, S2. ABDOMEN: Soft, nontender. No organomegaly. No rebound or guarding. No masses. LABORATORY DATA: Reveals a white count of 6.4, hemoglobin of 8, platelets of 238. Coagulation is noted and chemistries reveals a BUN of 14, creatinine of 0.8. Microbiology is reviewed. Review of medications revealed the patient to be on Flagyl and ceftriaxone. HIV test is pending. ASSESSMENT AND PLAN: This is a 37-year-old female with obesity with body mass index of 31, and history of pulmonary emboli, history of hypertension, admitted with diagnosis of appendicitis. The patient awaiting for surgery. On ceftriaxone and Flagyl. We will follow with you, and Dr. Miguel Stout's progress note is reviewed. Freddie Schroeder MD
[2017-08-29 17:38] VITALS: BP 153/91; PULSE 75; RESP 18; TEMP 98.4; O2SAT 98
--- NOTE | 2017-08-30 17:03 | CP.PCM.DIS ---
<Malcolm Truong - Last Filed: 08/30/17 16:51> Provider - Provider Date of Admission: 08/28/17 01:15 Attending physician: Sumanth Marcelino MD Primary care physician: Cynthia Lange DO Time Spent in preparation of Discharge (in minutes): 40 Hospital Course - Lab Results Lab Results: Micro Results 08/28/17 20:10 Blood Blood Culture - Preliminary NO GROWTH AFTER 24 HOURS 08/28/17 19:30 Blood Blood Culture - Preliminary NO GROWTH AFTER 24 HOURS Most Recent Lab Values WBC 6.0 10^3/ul (4.5-11.0) 08/29/17 06:30 RBC 4.03 10^6/uL (3.5-6.1) 08/29/17 06:30 Hgb 8.5 g/dL (12.0-16.0) L 08/29/17 06:30 Hct 27.8 % (36.0-48.0) L 08/29/17 06:30 MCV 69.0 fl (80.0-105.0) L 08/29/17 06:30 MCH 21.1 pg (25.0-35.0) L 08/29/17 06:30 MCHC 30.6 g/dl (31.0-37.0) L 08/29/17 06:30 RDW 16.9 % (11.5-14.5) H 08/29/17 06:30 Plt Count 229 10^3/uL (120.0-450.0) 08/29/17 06:30 MPV 10.1 fl (7.0-11.0) 08/29/17 06:30 Gran % 68.0 % (50.0-68.0) 08/29/17 06:30 Lymph % (Auto) 19.8 % (22.0-35.0) L 08/29/17 06:30 [place] % (Auto) 8.5 % (1.0-6.0) H 08/29/17 06:30 Eos % (Auto) 3.0 % (1.5-5.0) 08/29/17 06:30 Baso % (Auto) 0.7 % (0.0-3.0) 08/29/17 06:30 Gran # 4.06 (1.4-6.5) 08/29/17 06:30 Lymph # 1.2 (1.2-3.4) 08/29/17 06:30 [place] # 0.5 (0.1-0.6) 08/29/17 06:30 Eos # 0.2 (0.0-0.7) 08/29/17 06:30 Baso # 0.04 K/mm3 (0.0-2.0) 08/29/17 06:30 PT 13.1 SECONDS (9.4-12.5) H 08/29/17 06:30 INR 1.19 (0.93-1.08) H 08/29/17 06:30 APTT 27.2 Seconds (25.1-36.5) 08/29/17 06:30 Sodium 140 mmol/L (132-148) 08/29/17 06:30 Potassium 3.7 mmol/L (3.6-5.0) 08/29/17 06:30 Chloride 109 mmol/L (98-107) H 08/29/17 06:30 Carbon Dioxide 21 mmol/L (21-33) 08/29/17 06:30 Anion Gap 14 (10-20) 08/29/17 06:30 BUN 8 mg/dL (7-21) 08/29/17 06:30 Creatinine 0.7 mg/dL (0.7-1.2) 08/29/17 06:30 Est GFR ( Amer) > 60 08/29/17 06:30 Est GFR (Non-Af Amer) > 60 08/29/17 06:30 Random Glucose 82 mg/dL (70-110) 08/29/17 06:30 Calcium 8.6 mg/dL (8.4-10.5) 08/29/17 06:30 Phosphorus 3.0 mg/dL (2.5-4.5) 08/29/17 06:30 Magnesium 1.8 mg/dL (1.7-2.2) 08/29/17 06:30 Total Bilirubin 0.4 mg/dL (0.2-1.3) 08/29/17 06:30 AST 26 U/L (14-36) 08/29/17 06:30 ALT 32 U/L (7-56) 08/29/17 06:30 Alkaline Phosphatase 44 U/L (38-126) 08/29/17 06:30 Total Protein 6.5 g/dL (5.8-8.3) 08/29/17 06:30 Albumin 3.8 g/dL (3.0-4.8) 08/29/17 06:30 Globulin 2.7 gm/dL 08/29/17 06:30 Albumin/Globulin Ratio 1.4 (1.1-1.8) 08/29/17 06:30 HIV 1&2 Ag/Ab, 4th Gen Nonreactive (Nonreactive) 08/28/17 11:21 Blood Type A POSITIVE 08/28/17 06:30 Blood Type Confirm A POSITIVE 08/28/17 09:10 Antibody Screen Negative 08/28/17 06:30 Crossmatch See Detail 08/28/17 06:30 BBK History Checked No verified bt 08/28/17 06:30 - Hospital Course Hospital Course: Ms. Engel is a 37 year old female with a past medical history of unprovoked pulmonary embolism (on Eliquis 5mg BID), surgical history of cholecystectomy and gastric sleeve who comes into the hospital complaining of right sided lower thorax pain that radiates to the right lower quadrant for the past two weeks. Patient was in the ED yesterday and got imaging done but had to leave. from ED visit, the CT Abdomen showed hepatomegaly, distended appendix w/o signs of stranding and R ovarian cyst. Patient was transferred to med-surg floors and surgery and ID were consulted. Last Eliquis dose taken was the night before, and so Eliquis was d/c and pt was placed on a heparin drip. CT abdomen/pelvis w/ PO and IV contrast was done and showed similar results as prior study. Surgery team therefore decided against surgery as patient was asymptomatic and there was no clear imaging diagnosis of appendicitis. ID continued patient on abx. On morning of d/c, the patient had no complaints and was eager for d/c. She was tolerating her diet and denied n/v or fevers/chills or abdominal/chest pain. Patient was instructed to f/u Dr. Rubio, Dr. Martinez to restart eliquis and PMD Dr. Lange. Pt was also prescribed Ciprofloxacin and Flagyl. Questions were answered and pt understands instructions. - Date & Time of H&P Date of H&P: 08/28/17 Time of H&P: 01:42 Discharge Exam - Additional Findings Additional findings: - Head Exam Head Exam: ATRAUMATIC, NORMAL INSPECTION, NORMOCEPHALIC - Eye Exam Eye Exam: EOMI, Normal appearance, PERRL. absent: Conjunctival injection Pupil Exam: NORMAL ACCOMODATION, PERRL. absent: Irregular, Unequal - ENT Exam ENT Exam: Mucous Membranes Moist, Normal Exam. absent: Normal Oropharynx, TM's Normal Bilaterally - Neck Exam Neck exam: Positive for: Normal Inspection. Negative for: Lymphadenopathy, Thyromegaly - Respiratory Exam Respiratory Exam: Clear to Auscultation Bilateral, NORMAL BREATHING PATTERN. absent: Accessory Muscle Use, Chest Wall Tenderness, Prolonged Expiratory Phase , Respiratory Distress - Cardiovascular Exam Cardiovascular Exam: RRR, +S1, +S2. absent: Gallop, Rubs - GI/Abdominal Exam GI & Abdominal Exam: Normal Bowel Sounds. absent: Tenderness, Distended, Firm, Hypoactive Bowel Sounds, Organomegaly - Extremities Exam Extremities exam: Positive for: normal inspection. Negative for: full ROM, joint swelling, pedal edema, tenderness - Back Exam Back exam: NORMAL INSPECTION. absent: CVA tenderness (L), CVA tenderness (R), paraspinal tenderness - Neurological Exam Neurological exam: Alert, CN II-XII Intact, Oriented x3, Reflexes Normal - Psychiatric Exam Psychiatric exam: Normal Affect, Normal Mood - Skin Skin Exam: Dry, Intact, Normal Color Discharge Plan - Discharge Medications Prescriptions: Ciprofloxacin [Cipro] 500 mg PO BID 7 Days tab metroNIDAZOLE IV 500 mg/100 ml [Flagyl IV] 500 mg IV TID 7 Days bag - Follow Up Plan Condition: GOOD Disposition: HOME/ ROUTINE Instructions: Chest Pain (DC), Chest Pain (GEN), Pulmonary Embolism (DC), Pulmonary Embolism (GEN), Acute Abdominal Pain (DC) Additional Instructions: 1. Follow up with PMD in 1week. 2. Follow up with Dr. zaheer martinez tomorrow. 3. Follow up with Dr. Correa surgery in 1 week. 4. Please take the antibiotics as prescribed. 5. Please continue your Eliquis as prescribed, under management by Dr. Martinez Thank you Malcolm Truong PGY1 Dr. Marcelino, Attending Physician Referrals: Zaheer Martinez MD [Staff Provider] - Cynthia Lange DO [Primary Care Provider] - Brandan Rubio MD [Medical Doctor] - <Sumanth Marcelino - Last Filed: 08/30/17 17:11> Provider - Provider Date of Admission: 08/28/17 01:15 Attending physician: Sumanth Marcelino MD Primary care physician: Cynthia Lange DO Hospital Course - Lab Results Lab Results: Micro Results 08/28/17 20:10 Blood Blood Culture - Preliminary NO GROWTH AFTER 24 HOURS 08/28/17 19:30 Blood Blood Culture - Preliminary NO GROWTH AFTER 24 HOURS Most Recent Lab Values WBC 6.0 10^3/ul (4.5-11.0) 08/29/17 06:30 RBC 4.03 10^6/uL (3.5-6.1) 08/29/17 06:30 Hgb 8.5 g/dL (12.0-16.0) L 08/29/17 06:30 Hct 27.8 % (36.0-48.0) L 08/29/17 06:30 MCV 69.0 fl (80.0-105.0) L 08/29/17 06:30 MCH 21.1 pg (25.0-35.0) L 08/29/17 06:30 MCHC 30.6 g/dl (31.0-37.0) L 08/29/17 06:30 RDW 16.9 % (11.5-14.5) H 08/29/17 06:30 Plt Count 229 10^3/uL (120.0-450.0) 08/29/17 06:30 MPV 10.1 fl (7.0-11.0) 08/29/17 06:30 Gran % 68.0 % (50.0-68.0) 08/29/17 06:30 Lymph % (Auto) 19.8 % (22.0-35.0) L 08/29/17 06:30 [place] % (Auto) 8.5 % (1.0-6.0) H 08/29/17 06:30 Eos % (Auto) 3.0 % (1.5-5.0) 08/29/17 06:30 Baso % (Auto) 0.7 % (0.0-3.0) 08/29/17 06:30 Gran # 4.06 (1.4-6.5) 08/29/17 06:30 Lymph # 1.2 (1.2-3.4) 08/29/17 06:30 [place] # 0.5 (0.1-0.6) 08/29/17 06:30 Eos # 0.2 (0.0-0.7) 08/29/17 06:30 Baso # 0.04 K/mm3 (0.0-2.0) 08/29/17 06:30 PT 13.1 SECONDS (9.4-12.5) H 08/29/17 06:30 INR 1.19 (0.93-1.08) H 08/29/17 06:30 APTT 27.2 Seconds (25.1-36.5) 08/29/17 06:30 Sodium 140 mmol/L (132-148) 08/29/17 06:30 Potassium 3.7 mmol/L (3.6-5.0) 08/29/17 06:30 Chloride 109 mmol/L (98-107) H 08/29/17 06:30 Carbon Dioxide 21 mmol/L (21-33) 08/29/17 06:30 Anion Gap 14 (10-20) 08/29/17 06:30 BUN 8 mg/dL (7-21) 08/29/17 06:30 Creatinine 0.7 mg/dL (0.7-1.2) 08/29/17 06:30 Est GFR ( Amer) > 60 08/29/17 06:30 Est GFR (Non-Af Amer) > 60 08/29/17 06:30 Random Glucose 82 mg/dL (70-110) 08/29/17 06:30 Calcium 8.6 mg/dL (8.4-10.5) 08/29/17 06:30 Phosphorus 3.0 mg/dL (2.5-4.5) 08/29/17 06:30 Magnesium 1.8 mg/dL (1.7-2.2) 08/29/17 06:30 Total Bilirubin 0.4 mg/dL (0.2-1.3) 08/29/17 06:30 AST 26 U/L (14-36) 08/29/17 06:30 ALT 32 U/L (7-56) 08/29/17 06:30 Alkaline Phosphatase 44 U/L (38-126) 08/29/17 06:30 Total Protein 6.5 g/dL (5.8-8.3) 08/29/17 06:30 Albumin 3.8 g/dL (3.0-4.8) 08/29/17 06:30 Globulin 2.7 gm/dL 08/29/17 06:30 Albumin/Globulin Ratio 1.4 (1.1-1.8) 08/29/17 06:30 HIV 1&2 Ag/Ab, 4th Gen Nonreactive (Nonreactive) 08/28/17 11:21 Blood Type A POSITIVE 08/28/17 06:30 Blood Type Confirm A POSITIVE 08/28/17 09:10 Antibody Screen Negative 08/28/17 06:30 Crossmatch See Detail 08/28/17 06:30 BBK History Checked No verified bt 08/28/17 06:30 Attending/Attestation - Attestation I have personally seen and examined this patient.: Yes I have fully participated in the care of the patient.: Yes I have reviewed all pertinent clinical information, including history, physical exam and plan: Yes Notes (Text): 08/30/17 17:08 attending note; Patient seen and examined with resident. Patient is a 37-year-old female admitted with abdominal pain. Initial CAT scan showed dilated appendix. Repeat CAT scan is negative for acute appendicitis. Currently tolerating diet. Patient will be discharged home By mouth anti-biotics. started back on po Eliquis. Case discussed with child care education coordinator Dr. Martinez in detail. patient will follow-up with surgery in 1 week. follow-up with PMD . diagnosis; Abdominal pain History of PE 08/30/17 17:11
== END 2017-08-29 18:00 | disposition home or self-care (01) ==
LOC: ED 22:54 → ERH 08-28 01:15 → INTOOBSV 08-28 01:15 → ERH 08-28 01:28 → 5RNO 08-28 02:23
PROVIDERS: ADMIT Internal Medicine; ATTEND Internal Medicine
DX: K37 Unspecified appendicitis (principal); I10 Essential (primary) hypertension; E66.9 Obesity, unspecified; Z68.31 Body mass index [BMI] 31.0-31.9, adult; Z86.711 Personal history of pulmonary embolism; Z79.01 Long term (current) use of anticoagulants; Z87.891 Personal history of nicotine dependence; Z90.49 Acquired absence of other specified parts of digestive tract; Z98.84 Bariatric surgery status; R16.0 Hepatomegaly, not elsewhere classified; N83.201 Unspecified ovarian cyst, right side
CPT/HCPCS: 36415; 74177; 80053; 83735; 84100; 85025; 85610; 85730; 86850; 86900; 86920; 87040; 96365; 99284; C9113; G0378; J0696; J0744; J1644; J7040; Q9966; Q9967